=== PATIENT | female | born 1965 | race Caucasian/White ===

== ENCOUNTER 2021-07-24 14:23 | Emergency (ER) | payer OTHER ==
[2021-07-24 15:33] LABS: HEMOGLOBIN 16.7 gm/dl (12.3-15.3); RED BLOOD COUNT 5.37 M/UL (4.00-5.10); WHITE BLOOD COUNT 9.6 K/UL (4.5-11.0)
[2021-07-24 15:56] LABS: BUN/CREATININE RATIO 23 (0-10)
[2021-07-24] MEDS ORDERED: IPRAT-ALBUT 0.5-3 ML INH (17:06)
[2021-07-24] MEDS ORDERED: DOXYCYCLINE HY100 MG PO (17:06)
[2021-07-24] MEDS ORDERED: PREDNISONE20 MG PO (17:06)
== END 2021-07-24 20:15 | disposition home or self-care (01) ==
LOC: ER1 14:23
PROVIDERS: Family Medicine
DX: J18.9 Pneumonia, unspecified organism (principal); E66.01 Morbid (severe) obesity due to excess calories; J96.12 Chronic respiratory failure with hypercapnia; Z20.822 Contact with and (suspected) exposure to COVID-19; E11.9 Type 2 diabetes mellitus without complications; Z79.84 Long term (current) use of oral hypoglycemic drugs
CPT/HCPCS: 36600; 71045; 73610; 80048; 82550; 82553; 82803; 83605; 83874; 83880; 84484; 85025; 85610; 86140; 93005; 94664; 96374; 99285; J2930; U0002

== ENCOUNTER → 2021-08-24 | Outpatient (CLI) | payer OTHER ==
[~2021-08-24] MED LIST: DOXYCYCLINE HY100 MG PO; IPRAT-ALBUT 0.5-3 ML INH; PREDNISONE20 MG PO
== END ==
LOC: KOH-I 13:18
DX: S82.832D Other fracture of upper and lower end of left fibula, subsequent encounter for closed fracture with routine healing (principal)
CPT/HCPCS: 73610

== ENCOUNTER → 2021-09-07 | Outpatient (CLI) | payer BC | LOC: KOH-I 15:17 | DX: S82.832D Other fracture of upper and lower end of left fibula, subsequent encounter for closed fracture with routine healing (principal); X58.XXXD Exposure to other specified factors, subsequent encounter | CPT/HCPCS: 73610 ==

== ENCOUNTER → 2021-10-03 | Outpatient (CLI) | payer BC | LOC: KOH-I 13:26 | DX: S82.832D Other fracture of upper and lower end of left fibula, subsequent encounter for closed fracture with routine healing (principal) | CPT/HCPCS: 73610 ==

== ENCOUNTER → 2021-10-16 | Outpatient (CLI) | payer BC | LOC: KOH-I 10:02 | DX: M25.572 Pain in left ankle and joints of left foot (principal); S82.832D Other fracture of upper and lower end of left fibula, subsequent encounter for closed fracture with routine healing | CPT/HCPCS: 73610 ==

== ENCOUNTER → 2021-11-02 | Outpatient (CLI) | payer BC | LOC: KOH-I 09:44 | DX: S82.832K Other fracture of upper and lower end of left fibula, subsequent encounter for closed fracture with nonunion (principal); S82.832P Other fracture of upper and lower end of left fibula, subsequent encounter for closed fracture with malunion | CPT/HCPCS: 73610 ==

== ENCOUNTER → 2022-01-10 | Outpatient (CLI) | payer BC | LOC: KOH-I 13:01 | DX: S82.832D Other fracture of upper and lower end of left fibula, subsequent encounter for closed fracture with routine healing (principal) | CPT/HCPCS: 73610 ==